=== PATIENT | female | born 1945 | race African-American/Black ===

== ENCOUNTER 2017-02-09 11:27 | Inpatient (IN) | payer MEDICARE, MEDICAID ==
[~2017-02-09] VITALS: Ht 157.5 cm; Wt 64.9 kg
[2017-02-09] MEDS ORDERED: SODIUM CHLORIDE 0.9% 500 ML IV ONE (12:33)
[2017-02-09 13:02] LABS: BASOPHILS % 0.5 % (0.0-2.0); EOSINOPHILS % 0.2 % (0.0-5.0); HEMOGLOBIN. 10.2 g/dL (12.0-16.0); LYMPHOCYTES % 11.4 % (20.0-50.0); MEAN CORPUSCULAR HEMOGLOBIN 30.9 pg (28.0-32.0); MEAN CORPUSCULAR VOLUME 93.9 fL (81.0-99.0); MEAN PLATELET VOLUME 9.1 fl (7.4-10.4); MONOCYTES % 5.7 % (2.0-8.0); NEUTROPHILS % 82.2 % (40.0-76.0); PLATELET 127 x1000/uL (130-400); RED CELL DISTRIBUTION WIDTH 15.7 % (11.6-14.6)
[2017-02-09 13:11] LABS: INR 1.2; PARTIAL THROMBOPLASTIN TIME 24.9 sec (23.4-31.0); PROTHROMBIN TIME 12.2 sec (9.4-11.6)
[2017-02-09 13:23] LABS: CARBON DIOXIDE 18 mEq/L (21-32); CHLORIDE 105 mEq/L (98-107); CREATINE KINASE 223 IU/L (26-192)
[2017-02-09 13:27] LABS: TROPONIN I 0.49 ng/mL (0.00-0.04)
[2017-02-09] MEDS ORDERED: CALCIUM GLUCONATE 100MG/ML 10ML VIAL IV ONE (13:30)
[2017-02-09] MEDS ORDERED: SODIUM POLYSTYRENE SULFONATE 15 G/60 ML BOT PO ONE (13:30)
[2017-02-09] MEDS ORDERED: SODIUM BICARBONATE 8.4% 1 MEQ/ML 50ML SYR IV ONE (13:30)
[2017-02-09 13:40] LABS: BG BASE EXCESS -6.3 mmol/L (-2.0-2.0); BG CARBOXYHEMOGLOBIN 0.1 % (0.5-1.5); BG DEOXYHEMOGLOBIN 5.4 % (0.0-5.0); BG FRACTION INSPIRED OXYGEN 28; BG HCO3 ACT 17.9 mmol/L (22.0-26.0); BG METHEMOGLOBIN 0.2 % (0.0-1.5); BG OXYGEN SATURATION 94.6 % (92.0-98.5); BG OXYHEMOGLOBIN 94.3 % (94.0-97.0); BG PCO2 31.1 mmHg (35.0-45.0); BG PH 7.377 (7.350-7.450); BG PO2 80.3 mmHg (75.0-100.0); BG SAMPLE SITE RIGHT BRACHIAL; BG TOTAL HEMOGLOBIN 11.4 g/dL (12.0-18.0); BG VENT MODE NASAL CANNULA
[2017-02-09] MEDS ORDERED: CLONIDINE 0.2MG TABLET PO ONE (15:45)
[2017-02-09] MEDS ORDERED: PIPERACILLIN/TAZ 3.375G PREMIX 50 ML IV ONE (16:00)
[2017-02-09] MEDS ORDERED: IPRATROPIUM/ALBUTEROL 0.5-3(2.5)MG/3ML NEB INH PRN (16:45)
[2017-02-09] MEDS ORDERED: ONDANSETRON HCL 4MG/2ML VIAL IV PRN (16:45)
[2017-02-09] MEDS ORDERED: CLONIDINE 0.1MG TABLET PO PRN (16:45)
[2017-02-09] MEDS ORDERED: ACETAMINOPHEN 325MG TABLET PO PRN (16:45)
[2017-02-09] MEDS ORDERED: DIPHENHYDRAMINE 50MG/ML VIAL IV PRN (16:45)
[2017-02-09] MEDS ORDERED: HYDROCODONE/ACETAMINOPHEN 5/325MG TABLET PO PRN (16:45)
[2017-02-09 18:41] VITALS: BP 169/95
[2017-02-09] MEDS ORDERED: MANNITOL 12.5G (25%) VIAL 50ML IV NR (21:30)
[2017-02-09] MEDS ORDERED: DEXTROSE 50% WATER 50ML SYRINGE IV PRN (22:15)
[2017-02-09 23:37] VITALS: BP 150/80
[2017-02-10] VITALS (7 sets, daily range): BP systolic 121–165; BP diastolic 64–86
[2017-02-10] MEDS: BLOOD SUGAR DIAGNOSTIC STRIP TEST SCH ×4 (06:33→21:00)
[2017-02-10 06:43] LABS: BASOPHILS % 0.7 % (0.0-2.0); HEMATOCRIT. 32.9 % (36.0-48.0); HEMOGLOBIN. 10.9 g/dL (12.0-16.0); LYMPHOCYTES % 13.5 % (20.0-50.0); MEAN CORPUSCULAR VOLUME 93.5 fL (81.0-99.0); MEAN PLATELET VOLUME 9.8 fl (7.4-10.4); MONOCYTES % 5.2 % (2.0-8.0); NEUTROPHILS % 78.6 % (40.0-76.0); PLATELET 132 x1000/uL (130-400); RED BLOOD CELL COUNT 3.52 mill/uL (4.2-5.4); RED CELL DISTRIBUTION WIDTH 15.1 % (11.6-14.6)
[2017-02-10 07:38] LABS: CARBON DIOXIDE 26 mEq/L (21-32); CHLORIDE 96 mEq/L (98-107); HDL CHOLESTEROL 39 mg/dL (40-59); LDL CHOLESTEROL 94 mg/dL (5-100)
[2017-02-10] MEDS: INSULIN LISPRO 100 UNITS/ML SUBCUT SCH ×4 (08:28→21:00)
[2017-02-10] MEDS: ASPIRIN 81MG TABLET PO SCH (10:16)
[2017-02-10] MEDS: AMLODIPINE 5MG TABLET PO SCH (10:16)
[2017-02-10 15:45] LABS: HEPATITIS B SURFACE ANTIGEN NEGATIVE
[2017-02-10 16:13] LABS: HEPATITIS B CORE AB IGM NEGATIVE
[2017-02-10 16:15] LABS: HEPATITIS A AB IGM NEGATIVE (NEGATIVE)
[2017-02-10] MEDS: ATORVASTATIN CALCIUM 20MG TABLET PO SCH (21:35)
[2017-02-11 00:40] VITALS: BP 139/69
[2017-02-11 04:43] VITALS: BP 153/84
[2017-02-11 07:13] LABS: BASOPHILS % 0.5 % (0.0-2.0); EOSINOPHILS % 5.7 % (0.0-5.0); HEMATOCRIT. 31.6 % (36.0-48.0); HEMOGLOBIN. 10.6 g/dL (12.0-16.0); LYMPHOCYTES % 18.4 % (20.0-50.0); MEAN CORPUSCULAR HEMOGLOBIN 31.2 pg (28.0-32.0); MEAN CORPUSCULAR VOLUME 93.5 fL (81.0-99.0); MEAN PLATELET VOLUME 10.3 fl (7.4-10.4); MONOCYTES % 8.6 % (2.0-8.0); NEUTROPHILS % 66.8 % (40.0-76.0); PLATELET 144 x1000/uL (130-400); RED BLOOD CELL COUNT 3.38 mill/uL (4.2-5.4); RED CELL DISTRIBUTION WIDTH 15.1 % (11.6-14.6)
[2017-02-11] MEDS: BLOOD SUGAR DIAGNOSTIC STRIP TEST SCH ×4 (07:20→20:27)
[2017-02-11 08:00] VITALS: BP 158/86
[2017-02-11 08:21] LABS: FOLIC ACID (FOLATE) SERUM 7.2 ng/mL (>5.38)
[2017-02-11 08:35] LABS: CARBON DIOXIDE 24 mEq/L (21-32); CHLORIDE 96 mEq/L (98-107)
[2017-02-11] MEDS: ASPIRIN 81MG TABLET PO SCH (09:00)
[2017-02-11] MEDS: AMLODIPINE 5MG TABLET PO SCH (09:00)
[2017-02-11] MEDS: INSULIN LISPRO 100 UNITS/ML SUBCUT SCH ×4 (09:15→20:37)
[2017-02-11] MEDS: LOSARTAN POTASSIUM 50 MG TABLET PO SCH (11:00)
[2017-02-11 12:00] VITALS: BP 138/80
[2017-02-11] MEDS: ENOXAPARIN 30MG/0.3ML SYR SUBCUT SCH (12:00)
[2017-02-11 16:00] VITALS: BP_DIAS 80
[2017-02-11] MEDS: CARVEDILOL 6.25 MG TABLET PO SCH (20:36)
[2017-02-11 20:52] VITALS: BP 99/58
[2017-02-11] MEDS: ATORVASTATIN CALCIUM 20MG TABLET PO SCH (20:56)
[2017-02-12 00:28] VITALS: BP 128/71
[2017-02-12 04:00] VITALS: BP 139/67
[2017-02-12] MEDS: BLOOD SUGAR DIAGNOSTIC STRIP TEST SCH ×3 (06:16→17:40)
[2017-02-12 06:24] LABS: BASOPHILS % 0.3 % (0.0-2.0); EOSINOPHILS % 2.4 % (0.0-5.0); HEMATOCRIT. 36.4 % (36.0-48.0); HEMOGLOBIN. 12.2 g/dL (12.0-16.0); LYMPHOCYTES % 11.8 % (20.0-50.0); MEAN CORPUSCULAR VOLUME 92.8 fL (81.0-99.0); MEAN PLATELET VOLUME 9.7 fl (7.4-10.4); MONOCYTES % 9.7 % (2.0-8.0); NEUTROPHILS % 75.8 % (40.0-76.0); PLATELET 162 x1000/uL (130-400); RED BLOOD CELL COUNT 3.92 mill/uL (4.2-5.4)
[2017-02-12 08:00] VITALS: BP 116/59
[2017-02-12 08:21] LABS: CARBON DIOXIDE 27 mEq/L (21-32); CHLORIDE 96 mEq/L (98-107)
[2017-02-12] MEDS: ASPIRIN 81MG TABLET PO SCH (08:51)
[2017-02-12] MEDS: INSULIN LISPRO 100 UNITS/ML SUBCUT SCH ×3 (08:51→17:45)
[2017-02-12] MEDS: LOSARTAN POTASSIUM 50 MG TABLET PO SCH (08:52)
[2017-02-12] MEDS: AMLODIPINE 5MG TABLET PO SCH (08:52)
[2017-02-12] MEDS: CARVEDILOL 6.25 MG TABLET PO SCH (08:52)
[2017-02-12] MEDS: ENOXAPARIN 30MG/0.3ML SYR SUBCUT SCH (09:00)
[2017-02-12 12:00] VITALS: BP 106/63
[2017-02-12 16:00] VITALS: BP 100/60
[2017-02-12 16:13] VITALS: BP 132/76
== END 2017-02-12 19:30 | disposition home or self-care (01) | DRG 52 ==
LOC: ER 11:40 → 6WST 16:49 → ENRESERV 16:56 → EDBEDREQ 17:06 → EDBEDREQTM 17:06 → 6WST 02-12 12:46
PROVIDERS: ADMIT Internal Medicine; ATTEND Internal Medicine
DX: G93.41 Metabolic encephalopathy (principal); E46 Unspecified protein-calorie malnutrition; N18.6 End stage renal disease; I12.0 Hypertensive chronic kidney disease with stage 5 chronic kidney disease or end stage renal disease; D68.4 Acquired coagulation factor deficiency; I42.9 Cardiomyopathy, unspecified; E87.5 Hyperkalemia; D69.6 Thrombocytopenia, unspecified; E11.22 Type 2 diabetes mellitus with diabetic chronic kidney disease; B19.20 Unspecified viral hepatitis C without hepatic coma; D63.1 Anemia in chronic kidney disease; E78.5 Hyperlipidemia, unspecified; I25.10 Atherosclerotic heart disease of native coronary artery without angina pectoris; T50.905A Adverse effect of unspecified drugs, medicaments and biological substances, initial encounter; E87.70 Fluid overload, unspecified; J45.909 Unspecified asthma, uncomplicated; Z90.10 Acquired absence of unspecified breast and nipple; Z68.26 Body mass index [BMI] 26.0-26.9, adult; Z91.19 Patient's noncompliance with other medical treatment and regimen; Z99.2 Dependence on renal dialysis; Z88.6 Allergy status to analgesic agent
CPT/HCPCS: 36415; 36600; 70450; 71010; 80053; 80061; 82270; 82375; 82550; 82607; 82728; 82746; 82805; 82962; 83010; 83540; 83550; 83605; 83615; 83690; 83880; 84443; 84484; 85025; 85044; 85610; 85651; 85730; 86140; 86705; 86709; 86803; 87040; 87086; 87340; 93005; 93306; 96361; 96365; 96375; 99285; A6261; J0610; J1650; J1815; J2150; J2543; J3490; J7030; J7040; J7050